=== PATIENT | male | born 1930 | race Caucasian/White ===

== ENCOUNTER 2017-02-12 06:06 | Emergency (ER) | payer MEDICARE, OTHER ==
[~2017-02-12 06:06] MED LIST: ADVICOR 1,001 BOTTLE; ATENOLOL25 MG; ATENOLOL25 MG PO; ATENOLOL50 M1 PO; COLACE100 M1 PO; DIOVAN80 M PO; DIOVAN80 M1 PO; DIOVAN80 MG; DULCOLAX5 M1 PO; ECOTRIN325 MG; ELIQUIS5 M1 PO; FISH OIL 1,0001 EA10 PO; LORTAB 5-325 M1 EAC1 PO; LOVASTATIN20 M1 PO; LOVASTATIN20 M2 PO; LOW DOSE ASPIRI81 M3 PO; MILK OF MAGNESIA; MILK OF MAGNESIA PO; MULTIVITAMIN1 CAP; MULTIVITAMINS1 EAC6 PO; NIASPAN1000 M1 PO; NIASPAN1000 MG PO; NORVASC5 MG PO; OMEGA-31000 M1 PO; OMEGA-31000 MG; PERCOCET 5-3251 EACH PO; ROBITUSSIN DM118 ML PO; SENOKOT-S TABL1 EACH PO; TERAZOSIN HCL2 M PO; TERAZOSIN HCL2 M1 PO; TYLENOL325 M2 PO; ULTRAM50 M1 PO; VITAMIN C500 M1 PO; ZITHROMAX250MG Z-PAK PO; ZOFRAN ODT4 MG PO
[2017-02-12 06:56] LABS: BASO % 0.5 % (0-2); EOS % 3.8 % (0-7); EOSINOPHIL ABSOLUTE COUNT 0.2 tho/cmm (0.0-0.7); HCT-HEMATOCRIT 39.9 % (36.0-53.5); HGB-HEMOGLOBIN 13.5 gm/dl (13.5-17.0); LYMPH % 18.7 % (20-45); LYMPH ABSOLUTE COUNT 1.2 tho/cmm (0.8-4.5); MCH (MEAN CORPUSCULAR HGB) 30.9 pg (28.0-32.0); MCHC MEAN CORPUSCULAR HGB CONC 33.8 % (32.0-36.0); MCV (MEAN CELL VOLUME) 91.3 fl (82.0-96.0); MEAN PLATELET VOLUME 9.6 cmc (9.4-12.4); MONO % 8.4 % (0-12); MONOCYTE ABSOLUTE COUNT 0.5 tho/cmm (0.0-1.2); NEUTROPHIL ABSOLUTE COUNT 4.3 tho/cmm (1.6-8.0); NEUTROPHIL-AUTOMATED 4.3 tho/cmm (1.6-8.0); NEUTROPHILS % 68.6 % (40-80); PLATELET COUNT 148 tho/cmm (150-450); RED BLOOD COUNT 4.37 mil/cmm (4.40-5.70); RED CELL DISTRIBUTION WIDTH 13.6 % (12.4-16.4); WHITE BLOOD COUNT 6.3 tho/cmm (4.0-10.0)
[2017-02-12 07:06] LABS: ANION GAP 14 mmol/L (0-20); BLOOD UREA NITROGEN 21 mg/dl (6-24); CARBON DIOXIDE-VENOUS 26 mmol/L (22-32); CHLORIDE 106 mmol/l (96-110); GLUCOSE 95 mg/dL (70-110); POTASSIUM 4.5 mmol/L (3.7-5.1); SODIUM 141 mmol/L (135-145); eGFR VALUE FOR BLACK 48 mL/Min
[2017-02-12] MEDS ORDERED: TOPROL XL25 M1 (07:06)
[2017-02-12 07:18] LABS: URINE APPEARANCE HAZY; URINE BILIRUBIN NEGATIVE (NEG); URINE BLOOD LARGE (NEG); URINE COLOR YELLOW; URINE GLUCOSE (UA) NEGATIVE (NEG); URINE KETONE NEGATIVE (NEG); URINE LEUKOCYTE ESTERASE NEGATIVE (NEG); URINE NITRITE NEGATIVE (NEG); URINE PROTEIN NEGATIVE (NEG)
[2017-02-12 07:23] LABS: URINE RBC 100-120 /[HPF] (0-5)
[2017-02-12 07:24] LABS: URINE EPITHELIAL CELLS 0-2 /[HPF] (0-10); URINE MUCUS 1+; URINE WBC 0-3 /[HPF] (0-5)
[2017-02-12] MEDS ORDERED: NORCO 5-325 TA1 EACH PO (09:11)
[2017-04-29] MEDS ORDERED: NEURONTIN300 M1 PO (00:43)
[2017-04-29] MEDS ORDERED: [UNRECOGNIZED DRUG - REMARK] (00:43)
[2017-05-25] MEDS ORDERED: LIPITOR40 M1 PO (14:49)
[2017-05-25] MEDS ORDERED: PREDNISONE10 M1 PO (14:50)
[2017-05-25] MEDS ORDERED: TYLENOL325 M2 PO (14:51)
[2017-05-25] MEDS ORDERED: HYDROCODON-ACE1 EA16 PO (14:51)
[2017-05-25] MEDS ORDERED: FISH OIL-OMEGA1 EACH PO (14:52)
[2017-05-25] MEDS ORDERED: MULTIVITAMINS1 EAC6 PO (14:53)
[2017-05-25] MEDS ORDERED: NORCO 5/3251 TAB PO (22:25)
[2017-06-06] MEDS ORDERED: PERCOCET 10-321 EACH PO (11:02)
[2017-06-22] MEDS ORDERED: HYDROCODON-ACE1 EA15 PO (15:23)
[2017-06-22] MEDS ORDERED: PREDNISONE10 M1 PO (15:24)
[2017-06-22] MEDS ORDERED: CIPRO500 M2 PO (15:39)
== END 2017-02-12 09:32 ==
LOC: EDMED 06:06
PROVIDERS: Emergency Medicine
DX: N13.2 Hydronephrosis with renal and ureteral calculous obstruction (principal); I10 Essential (primary) hypertension; Z90.49 Acquired absence of other specified parts of digestive tract; Z95.0 Presence of cardiac pacemaker; Z87.891 Personal history of nicotine dependence; Z79.899 Other long term (current) drug therapy
CPT/HCPCS: J2270; J2405; J7030

== ENCOUNTER 2017-05-27 07:32 | Day surgery (SDC) | payer MEDICARE, OTHER ==
[~2017-05-27] VITALS: Ht 180.3 cm; Wt 772.0 kg
[~2017-05-27 07:32] MED LIST changes: +FISH OIL-OMEGA1 EACH PO; +HYDROCODON-ACE1 EA16 PO; +LIPITOR40 M1 PO; +NEURONTIN300 M1 PO; +NORCO 5-325 TA1 EACH PO; +NORCO 5/3251 TAB PO; +PREDNISONE10 M1 PO; +TOPROL XL25 M1; +[UNRECOGNIZED DRUG - REMARK]
[2017-05-27 08:43] LABS: BASO % 0.1 % (0-2); EOS % 4.4 % (0-7); EOSINOPHIL ABSOLUTE COUNT 0.3 tho/cmm (0.0-0.7); HCT-HEMATOCRIT 36.9 % (36.0-53.5); HGB-HEMOGLOBIN 12.1 gm/dl (13.5-17.0); IMMATURE GRANULOCYTES ABSOLUTE 0.07 tho/cmm (0-0.03); LYMPH % 9.4 % (20-45); LYMPH ABSOLUTE COUNT 0.7 tho/cmm (0.8-4.5); MCHC MEAN CORPUSCULAR HGB CONC 32.8 % (32.0-36.0); MCV (MEAN CELL VOLUME) 91.6 fl (82.0-96.0); MEAN PLATELET VOLUME 9.6 cmc (9.4-12.4); MONO % 5.5 % (0-12); MONOCYTE ABSOLUTE COUNT 0.4 tho/cmm (0.0-1.2); NEUTROPHIL ABSOLUTE COUNT 5.5 tho/cmm (1.6-8.0); NEUTROPHIL-AUTOMATED 5.5 tho/cmm (1.6-8.0); NEUTROPHILS % 79.6 % (40-80); PLATELET COUNT 137 tho/cmm (150-450); RED BLOOD COUNT 4.03 mil/cmm (4.40-5.70); RED CELL DISTRIBUTION WIDTH 16.4 % (12.4-16.4); WHITE BLOOD COUNT 6.9 tho/cmm (4.0-10.0)
[2017-05-27 08:44] LABS: INR 1.2 INR (0.9-1.1); PROTHROMBIN TIME 14.7 SECONDS (9.0-13.6)
[2017-05-27 10:40] LABS: CSF APPEARANCE CLEAR (CLEAR); CSF COLOR COLORLESS (COLORLESS); CSF RBC CT 2 cmm (0); CSF TUBE NUMBER CSF TUBE 2; CSF WBC CT 1 cmm (0-10)
[2017-05-27 10:44] LABS: CSF GLUCOSE 47 mg/dl (40-75)
[2017-06-06] MEDS ORDERED: PERCOCET 10-321 EACH PO (11:02)
== END 2017-05-27 12:00 ==
LOC: SHSC 07:32 → RADSP 07:32 → SHSC 07:33 → RADSP 09:00
PROVIDERS: Psychiatry & Neurology Neurology; Radiology Diagnostic Radiology
PROC: 009U3ZX Drainage of Spinal Canal, Percutaneous Approach, Diagnostic (ICD-10-PCS; principal; 2017-05-27)
PROC: B01BZZZ Fluoroscopy of Spinal Cord (ICD-10-PCS; 2017-05-27)
DX: G54.0 Brachial plexus disorders (principal); R29.898 Other symptoms and signs involving the musculoskeletal system; R91.8 Other nonspecific abnormal finding of lung field; Z79.899 Other long term (current) drug therapy
CPT/HCPCS: J7030; Q9967

== ENCOUNTER 2017-06-04 01:57 | Emergency (ER) | payer MEDICARE, OTHER ==
[~2017-06-04] VITALS: Ht 180.3 cm; Wt 71.7 kg
[2017-06-04] MEDS ORDERED: PERCOCET 5-3251 EACH PO (04:42)
[2017-06-06] MEDS ORDERED: PERCOCET 10-321 EACH PO (11:02)
== END 2017-06-04 05:17 ==
LOC: EDMED 01:57
DX: M54.12 Radiculopathy, cervical region (principal); I25.2 Old myocardial infarction; I11.0 Hypertensive heart disease with heart failure; I50.9 Heart failure, unspecified; N40.0 Benign prostatic hyperplasia without lower urinary tract symptoms; E78.5 Hyperlipidemia, unspecified; Z87.442 Personal history of urinary calculi; Z90.49 Acquired absence of other specified parts of digestive tract; Z95.1 Presence of aortocoronary bypass graft; Z95.5 Presence of coronary angioplasty implant and graft; Z98.890 Other specified postprocedural states; Z79.82 Long term (current) use of aspirin; Z79.899 Other long term (current) drug therapy
CPT/HCPCS: J1170; J2360